=== PATIENT | male | born 1990 ===

== ENCOUNTER 2022-03-08 01:04 | Emergency (ER) | payer SELFPAY ==
--- NOTE | 2022-03-08 03:06 | Emergency Department Report ---
ED Psych HPI - General Chief Complaint: Psych Stated Complaint: MH/SUICIDAL ATTEMPT/SELF HARM Time Seen by Provider: 03/08/22 02:59 Source: EMS Mode of arrival: Ambulatory - History of Present Illness Initial Comments: 31 yo M with remote history of anxiety and depression who present with depression x the last 3 days and progressively getting worse. Pt was noticed to have fresh cut/abrasion to his left wrist in an attempt to hurt himself. When asked what could be causing this he says he has no idea. No homicidal ideation reported. No other modifying or associated factors noted. - Related Data Previous Rx's Medication Instructions Recorded Last Taken Type Sertraline [Zoloft] 25 mg PO QDAY #30 tab 03/09/22 Unknown Rx Allergies Allergy/AdvReac Type Severity Reaction Status Date / Time No Known Allergies Allergy Unverified 03/08/22 01:10 ED Review of Systems ROS: Stated complaint: MH/SUICIDAL ATTEMPT/SELF HARM Other details as noted in HPI Comment: All other systems reviewed and negative Skin: other (abrasion/cuts left wrist ) Psychiatric: anxiety, depression ED Past Medical Hx - Past Medical History Previous Medical History?: No - Surgical History Past Surgical History?: No - Social History Smoking Status: Current Every Day Smoker Substance Use Type: Alcohol - Medications Home Medications: Home Medications Medication Instructions Recorded Confirmed Last Taken Type Sertraline [Zoloft] 25 mg PO QDAY #30 tab 03/09/22 Unknown Rx ED Physical Exam - General Limitations: Language Barrier General appearance: alert, in no apparent distress - Head Head exam: Present: normal inspection - Eye Eye exam: Present: normal appearance Pupils: Present: normal accommodation - ENT ENT exam: Present: normal exam, normal orophraynx - Neck Neck exam: Present: normal inspection. Absent: tenderness - Respiratory Respiratory exam: Present: normal lung sounds bilaterally. Absent: respiratory distress, accessory muscle use - Cardiovascular Cardiovascular Exam: Present: regular rate, normal rhythm, normal heart sounds - GI/Abdominal GI/Abdominal exam: Present: soft, normal bowel sounds. Absent: distended, tenderness - Extremities Exam Extremities exam: Present: normal inspection, full ROM, normal capillary refill. Absent: pedal edema - Back Exam Back exam: Present: normal inspection - Neurological Exam Neurological exam: Present: alert, oriented X3 - Psychiatric Psychiatric exam: Present: normal affect, normal mood - Skin Skin exam: Present: warm, normal color ED Course Vital Signs 03/08/22 03/08/22 03/08/22 01:10 03:48 14:23 Temperature 98.3 F 98.2 F Pulse Rate 96 H 63 Respiratory 18 18 Rate Blood Pressure 132/86 Blood Pressure 128/86 [Right] O2 Sat by Pulse 97 100 100 Oximetry 03/08/22 03/08/22 19:30 22:10 Temperature 97.8 F Pulse Rate 58 L Respiratory 16 Rate Blood Pressure Blood Pressure 132/78 [Right] O2 Sat by Pulse 98 99 Oximetry - Reevaluation(s) Reevaluation #1: 03/08/22 04:47 Patient escaped from the ER and went to his house and police was called and within few minutes patient was brought back by the police. We will continue to evaluate this patient and consult with psychiatric for full evaluation and treatment. ED Medical Decision Making - Lab Data Result diagrams: 03/08/22 04:56 03/08/22 04:56 - EKG Data -: EKG Interpreted by Me EKG shows normal: sinus rhythm Rate: bradycardia - Medical Decision Making here with anxiety and depression with cuts to his left wrist -- will go ahead and make this patient 1013 -- while waiting for the routine labs for any infectious or electrolytes abnormality -- will also check thyroid profile -- Critical care attestation.: If time is entered above; I have spent that time in minutes in the direct care of this critically ill patient, excluding procedure time. ED Disposition Clinical Impression: Anxiety and depression, Suicide ideation Disposition: 01 HOME / SELF CARE / HOMELESS Is pt being admited?: No Does the pt Need Aspirin: No Condition: Stable Additional Instructions: Professional and Agency Contacts To help Resolve Crises (03/03) [place] Crisis Line: Suicide Prevention Line: Crisis Text Line: Text START to 117529 Emergency: 911 Outpatient COMMUNITY Behavioral Health Resources: [facility]: [facility] [address] [place], [place] [address] [facility] [address] [place] [address] Friday thru Friday - 8am - 5pm Call to schedule an assessment for mental health and substance abuse programs [facility] Address: [address] [place] [address] Friday thru Friday- 7am-2pm [facility] Address: [address], [place] [address] Friday thru Friday: 8:30AM-5PM Prescriptions: Sertraline [Zoloft] 25 mg PO QDAY #30 tab Referrals: JOHANNA BAILEY MD [Primary Care Provider] - 3-5 Days
[2022-03-08 05:21] LABS: Basophils % (Auto) 0.3 % (0.0-1.8); Eosinophils # (Auto) 0.1 K/mm3 (0.0-0.4); Eosinophils % (Auto) 0.9 % (0.0-4.3); Hematocrit 44.8 % (35.5-45.6); Hemoglobin 15.7 gm/dl (11.8-15.2); Lymphocytes # (Auto) 2.7 K/mm3 (1.2-5.4); Lymphocytes % (Auto) 44.6 % (13.4-35.0); Mean Corpuscular HGB Conc 35 % (32-34); Mean Corpuscular Volume 88 fl (84-94); Monocytes # (Auto) 0.5 K/mm3 (0.0-0.8); Monocytes % (Auto) 7.7 % (0.0-7.3); Platelet Count 252 K/mm3 (140-440); Red Blood Count 5.07 M/mm3 (3.65-5.03); Red Cell Distribution Width 13.4 % (13.2-15.2)
[2022-03-08 05:48] LABS: Alanine Aminotransferase 11 units/L (7-56); Albumin 4.5 g/dL (3.9-5); BUN/Creatinine Ratio 9; Bilirubin,Direct < 0.2 mg/dL (0-0.2); Blood Urea Nitrogen 8 mg/dL (9-20); Calcium 8.7 mg/dL (8.4-10.2); Hemolysis Index 6
[2022-03-08 05:58] LABS: Free T4 (Free Thyroxine) 1.13 ng/dL (0.76-1.46)
--- NOTE | 2022-03-08 11:39 | Consultation ---
History of Present Illness - Reason for Consult Consult date: 03/08/22 Reason for consult: depression - History of Present Psychiatric Illness The patient was seen today. An translator/interpreter was used. The patient makes poor eye contact. He appears irritable and evasive. He says he's been depressed. He's unable to tell me why he's depressed, he says "I don't know. I just am." The patient initially says he came to the hospital to have his hand looked at. He denies SI/HI or any past history of psych disorders, but it is documented the patient cut his wrist in an attempt to harm himself. He endorses cocaine use. Will recommend acute psychiatric inpatient treatment and stabilize on medication. PAST PSYCHIATRIC HISTORY: Diagnoses: Denies Suicide attempts or Self-harm behavior: Yes Prior psychiatric hospitalizations: Denies Substance Abuse history: Cocaine Previous psychiatric medications tried: Denies Outpatient treatment: Denies PAST MEDICAL HISTORY: None reported Family Psychiatric History: None reported SOCIAL HISTORY Marital Status: Single Living Arrangements: With family Employment Status: Employed Access to guns/weapons: Denies Education: High school History of Abuse: Denies Legal History: Denies REVIEW OF SYSTEMS ROS cannot be reliably obtained from the patient due to her confusion and somnolence. Constitutional: Negative for weight loss ENT: Negative for stridor Respiratory: Negative for cough or hemoptysis All other systems reviewed and are negative MENTAL STATUS General Appearance and Behavior: evasive, calm Cooperation: Cooperative Mood: Depressed Affect and affective range: Congruent with stated mood Thought Process: goal directed Thought Content: None Speech: Normal volume and Regular rate and rhythm Suicidal Ideation: Denies Homicidal Ideation: Denies Impulse Control: Poor Insight and Judgment: Limited Memory: Limited Attention: Distracted Orientation: a/o Assessment: Major Depressive Disorder Treatment Plan 1013 zoloft 25mg po daily PSYCHOTHERAPY: Supportive psychotherapy provided MEDICAL: Per primary team DELIRIUM PRECAUTIONS: Please re-orient patient frequently, keep lights on during the day, and minimize benzodiazepines and opiates as these medications could worsen patient's confusion. 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 Salas Medications and Allergies Allergies Allergy/AdvReac Type Severity Reaction Status Date / Time No Known Allergies Allergy Unverified 03/08/22 01:10 Mental Status Exam - Vital signs Last Vital Signs Temp 98.3 F 03/08/22 01:10 Pulse 96 H 03/08/22 01:10 Resp 18 03/08/22 01:10 BP 132/86 03/08/22 01:10 Pulse Ox 100 03/08/22 03:48 Results Result Diagrams: 03/08/22 04:56 03/08/22 04:56 Abnormal lab results 03/08/22 03/08/22 03/08/22 Range/Units 04:56 04:56 04:56 RBC 5.07 H (3.65-5.03) M/mm3 Hgb 15.7 H (11.8-15.2) gm/dl MCHC 35 H (32-34) % Lymph % (Auto) 44.6 H (13.4-35.0) % Sac % (Auto) 7.7 H (0.0-7.3) % Chloride (98-107) mmol/L BUN (9-20) mg/dL Salicylates < 0.3 L (2.8-20.0) mg/dL Acetaminophen 5.0 L (10.0-30.0) ug/mL 03/08/22 Range/Units 04:56 RBC (3.65-5.03) M/mm3 Hgb (11.8-15.2) gm/dl MCHC (32-34) % Lymph % (Auto) (13.4-35.0) % Sac % (Auto) (0.0-7.3) % Chloride 107.9 H (98-107) mmol/L BUN 8 L (9-20) mg/dL Salicylates (2.8-20.0) mg/dL Acetaminophen (10.0-30.0) ug/mL All other labs normal.
[2022-03-08] MEDS: SERTRALINE 25 MG TAB PO SCH (12:23)
[2022-03-08 21:42] LABS: Mucus,Urine FEW /HPF
[2022-03-08 22:11] VITALS: BP 132/78
[2022-03-08 22:12] LABS: Bilirubin,Urine Negative (Negative); Color,Urine Yellow (Yellow)
[2022-03-08 22:13] LABS: Blood,Urine Negative (Negative); PH,Urine 7.5 (5.0-7.0)
[2022-03-08 23:02] LABS: Amphetamine Screen,Urine Negative; Benzodiazepines Screen,Urine Negative; Methadone Screen,Urine Negative; Opiate Screen,Urine Negative
[2022-03-08 23:21] LABS: Cannabinoid Screen,Urine PRESUMPTIVE POSITIVE; Cocaine Screen,Urine PRESUMPTIVE POSITIVE
[2022-03-09] MEDS: SERTRALINE 25 MG TAB PO SCH (09:53)
--- NOTE | 2022-03-09 09:56 | Progress Note ---
Subjective - Reason for Consult Consult date: 03/09/22 Reason for consult: depression - Chief Complaint Chief complaint: The patient was seen today. An spanish interpreter was used. The patient is a/o x 3. He is calm and cooperative. He says he feels fine. The patient also says he slept well. He denies SI/HI or hallucinations. Discussed with the patient the importance of continuing his meds and outpatient treatment. He verbalized understanding. The patient no longer meets criteria for inpatient treatment REVIEW OF SYSTEMS ROS cannot be reliably obtained from the patient due to her confusion and somnolence. Constitutional: Negative for weight loss ENT: Negative for stridor Respiratory: Negative for cough or hemoptysis All other systems reviewed and are negative MENTAL STATUS General Appearance and Behavior: evasive, calm Cooperation: Cooperative Mood: fine Affect and affective range: Congruent with stated mood Thought Process: goal directed Thought Content: None Speech: Normal volume and Regular rate and rhythm Suicidal Ideation: Denies Homicidal Ideation: Denies Impulse Control: Limited Insight and Judgment: Limited Memory: Limited Attention: attentive Orientation: a/o x 3 Assessment: Major Depressive Disorder Treatment Plan d/c 1013 zoloft 25mg po daily PSYCHOTHERAPY: Supportive psychotherapy provided MEDICAL: Per primary team DELIRIUM PRECAUTIONS: Please re-orient patient frequently, keep lights on during the day, and minimize benzodiazepines and opiates as these medications could worsen patient's confusion. 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 The assistant professor of spanish to give safety plan and give all necessary outpatient resources The patient to follow up with outpatient psych in 7 to 14 days upon discharge Will sign off. Thanks Case staffed with Dr. Salas Mental Status Exam - Vital signs Last Vital Signs Temp 97.8 F 03/08/22 22:10 Pulse 58 L 03/08/22 22:10 Resp 16 03/08/22 22:10 BP 132/78 03/08/22 22:10 Pulse Ox 99 03/08/22 22:10
== END 2022-03-09 11:19 | disposition home or self-care (01) ==
LOC: ED 01:04
DX: R45.851 Suicidal ideations (principal); F32.A Depression, unspecified; F41.9 Anxiety disorder, unspecified; F17.200 Nicotine dependence, unspecified, uncomplicated
CPT/HCPCS: 36415; 80048; 80076; 80307; 80320; 81001; 84439; 84443; 85025; 99284; G0480